=== PATIENT | male | born 1970 | race Caucasian/White ===

== ENCOUNTER → 2020-05-29 | Outpatient (CLI) | payer OTHER ==
--- NOTE | 2020-05-29 13:22 | MR ---
EXAMINATION TYPE: MR knee RT wo con DATE OF EXAM: 05/29/2020 COMPARISON: Plain film 05/04/2020 HISTORY: Right knee pain TECHNIQUE: Multiplanar, multisequence imaging of the right knee is performed without IV contrast. FINDINGS: MEDIAL MENISCUS: Anterior and posterior horns are intact without tear. LATERAL MENISCUS: Anterior and posterior horns are intact without tear. CRUCIATE LIGAMENTS: The anterior and posterior cruciate ligaments are intact and unremarkable. COLLATERAL LIGAMENTS: The medial collateral ligament and lateral collateral ligament complex are inta ct and unremarkable. EXTENSOR MECHANISM: Visualized quadriceps and patellar tendons are intact. Increased signal is presen t at the insertion of the patellar tendon, there is some focal thickening of the tendon EFFUSION: There is a small joint effusion POPLITEAL CYST: No popliteal/majano cyst. TRICOMPARTMENT SPACES: Maintained CARTILAGE: Maintained BONE MARROW SIGNAL: No focal abnormal marrow signal is appreciated. OTHER: There is some subcutaneous edema present anteriorly. IMPRESSION: Correlate for point tenderness, possible tendinosis, partial tear of the patellar tendon at its inser tion
== END | disposition home or self-care (01) ==
LOC: RADMRIMAIN 09:24
PROVIDERS: ATTEND Orthopaedic Surgery
DX: M25.561 Pain in right knee (principal)

== ENCOUNTER → 2021-12-23 | Outpatient (CLI) | payer OTHER ==
--- NOTE | 2021-12-24 01:22 | MR ---
EXAMINATION TYPE: MR knee RT wo con DATE OF EXAM: 12/23/2021 COMPARISON: None HISTORY: Right knee pain, pain behind knee, painful kneecap, and swelling . History of surgery Multiplanar multi echo imaging of the right knee without contrast. The anterior and posterior cruciate ligaments are intact. There is minimal knee joint effusion. There is increased signal in the posterior horn of the medial meniscus extending to the inferior surface. The other menisci appear fairly normal. The collateral ligaments are intact. No fracture seen. There is subcutaneous edema around the knee. The patella is intact. Knee joint spaces are fairly normal. IMPRESSION: There is complex tear of the posterior horn of the medial meniscus. No evidence of ligamentous tear. Small knee joint effusion.
== END | disposition home or self-care (01) ==
LOC: RADMRIMAIN 21:13
PROVIDERS: ATTEND Orthopaedic Surgery
DX: S83.241A Other tear of medial meniscus, current injury, right knee, initial encounter (principal); X58.XXXA Exposure to other specified factors, initial encounter

== ENCOUNTER → 2021-12-30 | Outpatient (CLI) | payer OTHER ==
[2021-12-30 17:58] LABS: HCT 46.9 % (39.0-53.0); HGB 14.7 gm/dL (13.0-17.5); MCH 27.4 pg (25.0-35.0); MCHC 31.4 g/dL (31.0-37.0); MCV 87.2 fL (80.0-100.0); Mean Platelet Volume 7.9; Platelet Count 147 k/uL (150-450); RBC 5.38 m/uL (4.30-5.90); RDW 12.9 % (11.5-15.5); WBC 6.7 k/uL (3.8-10.6)
[2021-12-30 20:39] LABS: Basophils # (M) 0.07 k/uL (0-0.2); Eosinophils # (M) 0.13 k/uL (0-0.7); Lymphocytes # (M) 1.47 k/uL (1.0-4.8); Monocytes # (M) 0.67 k/uL (0-1.0); Neutrophils # (M) 4.36 k/uL (1.3-7.7); Neutrophils % (M) 65 %; Nucleated Red Blood Cells 0 /100 WBC (0-0); RBC Morphology Normal; Total Cells Counted 100
[2021-12-30 23:32] LABS: African American GFR (CKD) 109.4 (60.0-200.0); BUN/Creat Ratio 11.33 Ratio (12.00-20.00); Blood Urea Nitrogen 10.5 mg/dL (9.0-27.0); Calcium 9.7 mg/dL (8.7-10.3); Carbon Dioxide 25.1 mmol/L (20.0-27.5); Non-African American GFR(CKD) 94.4 (60.0-200.0); Potassium 4.5 mmol/L (3.5-5.5)
== END | disposition home or self-care (01) ==
LOC: LABPAT 10:25
PROVIDERS: ATTEND Orthopaedic Surgery
DX: Z01.812 Encounter for preprocedural laboratory examination (principal); M23.91 Unspecified internal derangement of right knee
CPT/HCPCS: 80048; 85025

== ENCOUNTER → 2022-12-26 | Outpatient (CLI) | payer OTHER ==
[2022-12-26 19:22] LABS: Anion Gap 8.7 mmol/L (10.00-18.00); BUN/Creat Ratio 20.71 Ratio (12.00-20.00); Blood Urea Nitrogen 19.3 mg/dL (9.0-27.0); Calcium 9.9 mg/dL (8.7-10.3); Non-African American GFR(CKD) 93.2 (60.0-200.0); Potassium 5.3 mmol/L (3.5-5.5)
[2022-12-26 20:41] LABS: Basophils # (A) 0.06 X 10*3/uL (0.00-0.10); Basophils % (A) 0.9 %; Eosinophils # (A) 0.21 X 10*3/uL (0.04-0.35); HGB 13.9 g/dL (13.0-17.0); Immature Grans, Automated 0.4 %; Lymphocytes % (A) 41.7 %; MCH 27.1 pg (27.0-32.0); MCHC 31.6 g/dL (32.0-37.0); MCV 85.8 fL (80.0-97.0); Mean Platelet Volume 10.1 fL (9.5-12.2); Monocytes # (A) 0.73 X 10*3/uL (0.20-1.00); Monocytes % (A) 10.5 %; NRBC Per 100 WBC 0 /100 WBCS (0.0-0.0); Neutrophils # (A) 3.03 X 10*3/uL (1.80-7.70); Neutrophils % (A) 43.5 %; Platelet Count 232 X 10*3/uL (140-440); RBC 5.13 X 10*6/uL (4.40-5.60); RDW 12.5 % (11.5-14.5); WBC 6.96 X 10*3/uL (4.50-10.00)
== END | disposition home or self-care (01) ==
LOC: LABWHC1 09:56
PROVIDERS: ATTEND Orthopaedic Surgery
DX: Z01.818 Encounter for other preprocedural examination (principal); M75.42 Impingement syndrome of left shoulder; R00.1 Bradycardia, unspecified; R94.31 Abnormal electrocardiogram [ECG] [EKG]
CPT/HCPCS: 36415; 80048; 85025; 93005

== ENCOUNTER → 2023-01-16 | Day surgery (SDC) | payer OTHER ==
--- NOTE | 2023-01-15 08:37 | P.HPOR ---
History of Present Illness H&P Date: 01/15/23 Chief Complaint: Left shoulder pain The patient is a 52-year-old left hand dominant male who presents with left shoulder pain for the past 6 months that is worsening. He is having pain with overhead use and at night. He notes it significantly limiting. He's tried therapy, medications, and an injection without much relief. Review of Systems As per HPI Past Medical History Past Medical History: Atrial Fibrillation, Hyperlipidemia, Hypertension, Myocardial Infarction (ME), Osteoarthritis (OA) Last Myocardial Infarction Date:: 2018 History of Any Multi-Drug Resistant Organisms: None Reported Past Surgical History: Back Surgery, Cholecystectomy, Heart Catheterization, Hernia Repair, Orthopedic Surgery, Tonsillectomy Additional Past Surgical History / Comment(s): rt knee arthroscopy x2, spinal fusion Past Anesthesia/Blood Transfusion Reactions: No Reported Reaction Smoking Status: Former smoker - Past Family History Mother Family Medical History: No Reported History Medications and Allergies Home Medications Medication Instructions Recorded Confirmed Type ALPRAZolam [Xanax] 0.25 mg PO BID PRN 01/22/22 01/14/23 History Allergy Eye Drop 1 drop BOTH EYES QAM 01/22/22 01/14/23 History Allergy Injections 1 applicate IJ Q21D 01/22/22 01/14/23 History Aspirin 325 mg PO DAILY 01/22/22 01/14/23 History Cholecalciferol [Vitamin D3 (25 50 mcg PO HS 01/22/22 01/14/23 History Mcg = 1000 Iu)] Docusate [Colace] 200 mg PO HS 01/22/22 01/14/23 History Fluticasone Nasal [place] [Flonase 2 spray EA NOSTRIL BID 01/22/22 01/14/23 Hi story Nasal [place]] Loratadine [Claritin] 10 mg PO DAILY 01/22/22 01/14/23 History Nitroglycerin Sl Tabs [Nitrostat] 0.4 mg SUBLINGUAL Q5M PRN 01/22/22 01/14/23 History Rosuvastatin Calcium 10 mg PO HS 01/22/22 01/14/23 History Metoprolol Tartrate [Lopressor] 50 mg PO BID 01/14/23 01/14/23 History Sertraline [Zoloft] 25 mg PO HS 01/14/23 01/14/23 History Allergies Allergy/AdvReac Type Severity Reaction Status Date / Time tramadol [From Ultram] Allergy confusioin, Verified 01/14/23 14:50 pin point pupils dust,trees,weeds Allergy Unknown Uncoded 01/14/23 14:50 Physical Examination - Shoulder left Tenderness with palpation: anterior Pain: with abduction, with forward flexion ROM: forward flexion: 140 degrees ROM: internal rotation: upper lumbar ROM: external rotation: 50 degrees Crepitus with motion: Yes Strength: abduction: 4/5 Strength: external rotation: 5/5 Tests: internal impingement tests: positive, external impingment tests: positive Results The patient is a well-developed well-nourished male, approximately 5 foot 11, 275 pounds of endomorphic have his. HEENT exam; nonfocal, neck supple. He is tender about the anterior subacromial space of the left shoulder. He has moderate crepitus. Has a positive Neer, White, and speed test. His distal neurovascular appears intact left upper extremity. - Diagnostic results Shoulder MRI: image reviewed (MRI report left shoulder 07/24/2022 shows rotator cuff tendinosis along with biceps tendinosis.) Assessment and Plan Assessment: Left shoulder impingement/rotator cuff tendinosis/possible partial thickness rotator cuff tear Left proximal bicipital tendinosis Plan: I talked to the patient regarding his condition along with treatment options. This point remains quite symptomatic despite previous conservative measures. After thorough discussion he opted to proceed with surgery. We'll proceed with left shoulder arthroscopy with probable subacromial decompression, possible rotator cuff debridement versus repair, in addition to possible biceps tenotomy. We will likely perform that as an outpatient procedure. Risks and benefits were discussed at length in layman's terms.
[~2023-01-16] MED LIST: DEXAMETHASONE SOD PHOSPHATE 4 MG/ML 1 ML VIAL IV ONE; DEXAMETHASONE SOD PHOSPHATE 4 MG/ML 1 ML VIAL ONE; EPINEPHrine (PF) 1 ML in SODIUM CHLORIDE 0.9% IRRIGATIO 3,000 ML IRRIGATION ONE; GLYCOPYRROLATE 0.2 MG/ML 2 ML VIAL ONE; HYDROmorphone (PF) 1 MG/ML ONE; HYDROmorphone 0.5 MG/0.5 ML SYRINGE IVP ONE; HYDROmorphone 0.5 MG/0.5 ML SYRINGE IVP PRN; LACTATED RINGERS 1,000 ML IV SCH; LIDOCAINE 1% (10MG/ML) FOR IV START INTRADERMA PRN; LIDOCAINE 2% INJ 20 MG/ML (2 ML VIAL) ONE; MIDAZOLAM 2 MG/2 ML VIAL IV PRN; MIDAZOLAM 2 MG/2 ML VIAL IVP ONE; NEOSTIGMINE 1 MG/ML 10 ML VIAL ONE; ONDANSETRON 4 MG/2 ML VIAL IVP ONE; ONDANSETRON 4 MG/2 ML VIAL ONE; PHENYLEPHRINE-0.9% NACL SYG 1,000 MCG/10 ML SYRINGE ONE; PROPOFOL 10 MG/ML 20 ML VIAL IV ONE; ROCURONIUM 10 MG/ML (5 ML VIAL) IV ONE; ROPIVACAINE 5 MG/ML 30 ML VIAL ONE; SUCCINYLCHOLINE CHLORIDE 200 MG/10 ML VIAL IV ONE; ceFAZolin 3 GM in SODIUM CHLORIDE 0.9% 100 ML IVPB PRN
[2023-01-16 06:32] VITALS: RESP 16; TEMP 97.5
--- NOTE | 2023-01-16 09:36 | P.OP ---
Date of Procedure: 01/16/23 Preoperative Diagnosis: Left shoulder impingement/partial thickness rotator cuff tear/bicipital tendinosis Postoperative Diagnosis: High-grade partial-thickness tear bursal surface supraspinatus, high-grade partial tear intra-articular portion proximal biceps Procedure(s) Performed: Left shoulder arthroscopic subacromial decompression/biceps tenotomy/distal clavicular resection/rotator cuff repair Implants: Arthrex 4.75 mm swivel lock anchor 2 Anesthesia: TUSHAR regional Surgeon: Glynn Grier Evp General Counsel #1: Edy Rodriguez Estimated Blood Loss (ml): 10 Pathology: none sent Condition: stable Disposition: PACU Indications for Procedure: The patient's a 52-year-old male who presents with progressive left shoulder pain despite conservative measures. A discussion of the risks and benefits of operative intervention versus continued conservative measures was made with patient. He opted to proceed with surgery. Operative risks to include infection, neurovascular injury, development of blood clots, possible tendon rerupture, possible postoperative stiffness and need for subsequent procedures was discussed. Informed consent was obtained. Operative Findings: As below Description of Procedure: The patient was brought to the operating room, and after induction of general anesthesia was placed in a beachchair position. A preoperative interscalene block was placed for postoperative analgesia. I examined the left shoulder. There was no gross block to passive motion or gross glenohumeral instability. The left upper extremity was prepped and draped in normal fashion. The bony outlines the acromion, distal clavicle, and coracoid process were outlined with a skin marker. The glenohumeral joint was inflated with 50 mL of saline utilizing a spinal needle from posterior approach. A posterior portal was made through a 5 mm skin incision 1 cm medial and inferior to the posterior lateral border time. A blunt trocar was used to easily into the joint. Diagnostic arthroscopy was performed. An anterior portal was made just lateral to the coracoid process entering the joint above the subscapularis tendon. The subscapularis tendon appeared to be intact. Anterior labrum was intact. The inferior recess was inspected. The posterior labrum was intact. There was a high-grade partial-thickness tear of the long head of the biceps involving interarticular portion. It was elected to proceed with release at this point. This was released from the superior labrum with electrocautery and was allowed to retract to the bicipital groove. On inspection the rotator cuff, a partial thickness tear involving the anterior aspect the supraspinatus on the articular surface was noted. This involved approximately 20% of the tendon thickness. This was debrided back to a stable base with a motorized shaver. The arthroscope was placed into the subacromial . A lateral portal was made 2 centimeters inferior to the anterior lateral border of the acromion. . The soft tissue on the undersurface of the acromion was debrided with a motorized shaver and electrocautery clearly defining the anterior medial and lateral borders as well as the distal clavicle. An anterior inferior acromioplasty was performed with a motorized sandra starting anterolateral, then extending this posteriorly, then extending this medially. I converted to a flat acromion and this was verified in the posterior and lateral viewing portals. The distal clavicle appear to impinge on the subacromial space therefore the distal 4 mm was resected with a motorized sandra. The rotator cuff was then inspected. A high-grade partial-thickness tear involving the infraspinatus was noted measuring approximately 1-1/2 cm. This involved proximal 75% of the tendon thickness. This was then taken down and easily mobilized. The greater tuberosity was lightly decorticating with a shaver down to a bleeding bony surface. An accessory superior lateral portal was made just off the lateral edge of the acromion for anchor placement along with a posterior lateral portal for viewing. A 4.75 mm swivel lock anchor was then placed off the articular surface with the appropriate starting awl. A tap was utilized. Good purchase obtained. 2 fiber tapes were then passed the rotator cuff with a scorpion suture passer. A lateral row was created crisscrossing these tapes. A 4.75 mm swivel lock anchor was placed laterally with the appropriate starting awl. Good purchase was obtained. Final arthroscopic view showed adequate compression at the footprint. The arthroscope was then removed. The portals were closed with simple 3-0 nylon sutures. A sterile dressing was applied in addition to a sling. The patient was then awoken from general anesthesia and transferred to recovery room in good condition. Blood loss was estimated at 10 mL. No complications were incurred. Sponge and needle counts were correct in the case. Edy VICENTE assisted and the major components of the case to include arm positioning, anchor placement, and rotator cuff repair.
--- NOTE | 2023-01-16 10:27 | P.ANPRN ---
Procedure Note - Anesthesia - Nerve Block Performed Left Interscalene Single Time Out Performed: Yes Date of Procedure: 01/16/23 Procedure Start Time: 06:57 Procedure Stop Time: 07:03 Location of Patient: PreOp Indication: Acute Post-Operative Pain, Requested by Surgeon Sedation Type: Sedate with meaningful contact maintained Preparation: Sterile Prep Position: Supine Needle Types: Pajunk Needle Gauge: 21 Ultrasound used to visualize needle placement: Yes Ultrasound used to observe medication spread: Yes Blood Aspirated: No Pain Paresthesia on Injection Noted: No Resistance on Injection: Normal Image Stored and Saved: Yes Events: Uneventful and Well Tolerated (Ropivacaine 0.5% 20 mL cc plus dexamethasone 4 mg)
[2023-01-16 12:44] VITALS: BP 108/77; PULSE 80
== END | disposition home or self-care (01) ==
LOC: OR 05:53
PROVIDERS: ATTEND Orthopaedic Surgery
DX: M75.112 Incomplete rotator cuff tear or rupture of left shoulder, not specified as traumatic (principal); S46.212A Strain of muscle, fascia and tendon of other parts of biceps, left arm, initial encounter; S43.432A Superior glenoid labrum lesion of left shoulder, initial encounter; M75.22 Bicipital tendinitis, left shoulder; M75.42 Impingement syndrome of left shoulder; G89.18 Other acute postprocedural pain; I25.2 Old myocardial infarction; I48.91 Unspecified atrial fibrillation; I25.10 Atherosclerotic heart disease of native coronary artery without angina pectoris; F41.9 Anxiety disorder, unspecified; F32.A Depression, unspecified; I10 Essential (primary) hypertension; E78.5 Hyperlipidemia, unspecified; Z98.890 Other specified postprocedural states; Z87.891 Personal history of nicotine dependence; Z79.82 Long term (current) use of aspirin; Z79.899 Other long term (current) drug therapy; Z88.5 Allergy status to narcotic agent
CPT/HCPCS: 29827; 29824; 29826; 64415; C1713; C1894; J2250; J0330; J1100; J2710; J0690; J2405; J0171; J1170 ×2; J2795; J2370; J2704; J2001

== ENCOUNTER → 2024-01-05 | Outpatient (CLI) | payer OTHER | END | disposition home or self-care (01) | LOC: CPPFTMAIN 11:20 | PROVIDERS: ATTEND Family Medicine | DX: Z87.891 Personal history of nicotine dependence (principal) | CPT/HCPCS: 94060; 94726; 94729 ==

== ENCOUNTER → 2024-10-05 | Outpatient (CLI) | payer OTHER ==
[2024-10-05 10:26] VITALS: BP 177/99; PULSE 56; RESP 18; TEMP 97.5
--- NOTE | 2024-10-05 15:45 | P.PAINPG ---
PQRS Measure Charge Sheet Comment: HISTORY OF PRESENT ILLNESS: A 53 yr old male as a referral from the [facility] presents today w severe and chronic thoracolumbar pain secondary to radiculopathy, spondylosis and facet arthropathy without myelopathy for evaluation. Pt states pain level is provoked at 7 /10 in intensity, constant, localized in the lower lumbar spine, predominantly axial, sore in character w occasional shooting pain towards the back of the LEs. Pain is provoked by sitting on a chair for periods > 15 min. Pain is alleviated by PT x 6 wks (Hip, Shoulder) which he is currently in, physician guided home stretches daily since ec 2023, heat, medications (Ibu), topical Icy-Hot, repositioning and rest . Oswestry axial pain score at 28. PMH: OA, aFib, Hyperlipidemia, HTN, [place] (2018), PSH: Spinal Fusion, R Knee Arthroscopy x2 (2021), L RCT Repair (2022), Cardiac Catheterization, Hernia Repair, Cholecystectomy, Tonsillectomy SH: Former tobacco user, Rare ETOH use, No illicit drug use FH: Mo- No Reported History All: See list Meds: See list REVIEW OF ORGAN SYSTEMS: CONSTITUTIONAL: No fevers or chills. No recent weight loss. NEUROLOGICAL: + numbness and tingling along the distal extremities. No seizure disorders or headaches. MUSCULOSKELETAL: + pain PSYCHIATRIC: Denies current depression or suicidal thoughts. Physical Examinations : Constitutional : Cooperative , not in acute distress . Neurologic : Cranial nerve II to XII intact. No focal n eurological deficits. Psychiatric : alert & oriented x 3. Matching mood & appropriate affect. Judgment & insight intact. Musculoskeletal : Cervical Spine Motor strength in the deltoid and biceps: Normal right side. Normal Left side Motor strength biceps and the wrist extensors: Normal right side . Normal left side Motor strength in the triceps muscle: Normal right side. Normal left side Deep tendon reflexes: Normal at the biceps. Normal at Brachioradialis. Normal at triceps Vertebral body tenderness to deep p alpation over Cervical facet loading test: positive bilaterally Spurling test: positive bilaterally Neck distraction test: positive bilaterally Alexys sign: positive bilaterally Lumbar spine +Well healed vertical incisional scars Motor strength lower extremities ,thigh and legs 5/5 Right side , 5/5 Left side Deep tendon reflexes : Normal Knee Jerk. Normal Ankle Jerk Vertebral body tenderness over L4, L5 Cordero Test positive BL L5-S1 Lumbar facet Loading Test: positive Right / positive Left Range of motion of the lumbar spine Flexion 30 degrees, extension 10 degrees Straight Leg Raise test: Left/ Right positive at degrees Nancie test: positive right / positive left. Severe tenderness over the Sacroiliac joint on the Right / Left sides Gaenslen test: positive bilaterally Seated flexion test: positive bilaterally. Sacral spine : Severe tenderness over the Sacroiliac joint: right side / left side Range of motion: Flexion of the lumbar spine <60 degrees Range of motion: Extension of the lumbar spine <20 degrees Gaenslen's Test positive Nancie test: positive right side / left side Thigh Thrust Test Sacral Thrust Test Imaging: MRI non contrast lumbar spine from 06/16/24 reviewed MRI non contrast lumbar spine from 06/16/24 reviewed Assessment/ Plan : T2-T3/ T5-T6/ T7-T8/ T8-T9. T11-T12 radiculopathy, L3-L4 radiculopathy, post L4- S1 laminectomy syndrome Recommendation of Caudal ISREAL w Lysis. Risks, benefits of procedure discussed and patient verbalized understanding. Admits to anti- coagulant use or medical history of diabetes. Protocol for discontinuation/ continuation of medications herber procedure discussed. All questions answered. I have spent greater than 30 minutes on patient care today. Dr Lopez was available by phone for the evaluation of this patient. The time was used to review the medical records including relevant urine studies and Prescription history (MAPs), review of the available imaging, evaluation and examination of the patient, coordination of care with the medical staff and if applicable referring physicians, as well as creation of the medical record Home Medications: Ambulatory Orders ALPRAZolam [Xanax] 0.25 mg PO BID PRN 01/22/22 Allergy Eye Drop 1 drop BOTH EYES QAM 01/22/22 Allergy Injections 1 applicate IJ Q21D 01/22/22 Aspirin 325 mg PO DAILY 01/22/22 Cholecalciferol [Vitamin D3 (25 Mcg = 1000 Iu)] 50 mcg PO HS 01/22/22 Docusate [Colace] 200 mg PO HS 01/22/22 Fluticasone Nasal [place] [Flonase Nasal [place]] 2 spray EA NOSTRIL BID 01/22/22 Loratadine [Claritin] 10 mg PO DAILY 01/22/22 Nitroglycerin Sl Tabs [Nitrostat] 0.4 mg SUBLINGUAL Q5M PRN 01/22/22 Rosuvastatin Calcium 10 mg PO HS 01/22/22 Metoprolol Tartrate [Lopressor] 50 mg PO BID 01/14/23 Sertraline [Zoloft] 25 mg PO HS 01/14/23 HYDROcodone/APAP 7.5-325MG [[place] 7.5] 1 each PO Q6HR PRN #28 tab 01/16/23 Controlled Substance Measures - Controlled Substance Measures Is patient prescribed a controlled substance at discharge?: Yes When asked, does pt state using other controlled substances?: No If prescribed controlled substance>3 days was MAPS reviewed?: Prescribed <3 Days
== END ==
LOC: PNWHC3 09:04
PROVIDERS: ATTEND Specialist
DX: M54.14 Radiculopathy, thoracic region (principal); M54.16 Radiculopathy, lumbar region; M96.1 Postlaminectomy syndrome, not elsewhere classified; Z88.5 Allergy status to narcotic agent; Z91.048 Other nonmedicinal substance allergy status
CPT/HCPCS: 99202

== ENCOUNTER 2024-10-28 08:20 | Day surgery (SDC) | payer OTHER ==
[~2024-10-28 08:20] MED LIST changes: -DEXAMETHASONE SOD PHOSPHATE 4 MG/ML 1 ML VIAL IV ONE; -DEXAMETHASONE SOD PHOSPHATE 4 MG/ML 1 ML VIAL ONE; -EPINEPHrine (PF) 1 ML in SODIUM CHLORIDE 0.9% IRRIGATIO 3,000 ML IRRIGATION ONE; -GLYCOPYRROLATE 0.2 MG/ML 2 ML VIAL ONE; -HYDROmorphone (PF) 1 MG/ML ONE; -HYDROmorphone 0.5 MG/0.5 ML SYRINGE IVP ONE; -HYDROmorphone 0.5 MG/0.5 ML SYRINGE IVP PRN; -LIDOCAINE 1% (10MG/ML) FOR IV START INTRADERMA PRN; -LIDOCAINE 2% INJ 20 MG/ML (2 ML VIAL) ONE; -MIDAZOLAM 2 MG/2 ML VIAL IV PRN; -MIDAZOLAM 2 MG/2 ML VIAL IVP ONE; -NEOSTIGMINE 1 MG/ML 10 ML VIAL ONE; -ONDANSETRON 4 MG/2 ML VIAL IVP ONE; -ONDANSETRON 4 MG/2 ML VIAL ONE; -PHENYLEPHRINE-0.9% NACL SYG 1,000 MCG/10 ML SYRINGE ONE; -PROPOFOL 10 MG/ML 20 ML VIAL IV ONE; -ROCURONIUM 10 MG/ML (5 ML VIAL) IV ONE; -ROPIVACAINE 5 MG/ML 30 ML VIAL ONE; -SUCCINYLCHOLINE CHLORIDE 200 MG/10 ML VIAL IV ONE; -ceFAZolin 3 GM in SODIUM CHLORIDE 0.9% 100 ML IVPB PRN
[2024-10-28 09:32] VITALS: TEMP 97.5
[2024-10-28] MEDS ORDERED: methylPREDNISolone ACETATE 80 MG/ML 1 ML VIAL ONE (09:58)
[2024-10-28] MEDS ORDERED: IOPAMIDOL M200 10 ML VIAL ONE (09:58)
[2024-10-28] MEDS ORDERED: ROPIVACAINE 5MG/ML 20ML VIAL ONE (09:58)
--- NOTE | 2024-10-28 10:11 | P.PCN ---
Date of Procedure: 10/28/24 Procedure(s) Performed: PREOP DIAGNOSIS: 1- Lumbar postlaminectomy syndrome. 2-lumbar radiculopathy POSTOP DIAGNOSIS:1- Lumbar postlaminectomy syndrome. 2-lumbar radiculopathy PROCEDURE: 1-Caudal epidural steroid injection with epidurolysis and epidurogram under fluoroscopic guidance. (Fluoro images in the radiology Department ) 2-caudal epidurogram. ANESTHESIA: Local ropivacaine 0.5% 3 mL for skin and subcu infiltration. EBL: Minimal. PROCEDURE INDICATION: The patient with post-laminectomy syndrome with low back pain and radiculopathy radiating down in both legs, here for a caudal epidural steroid injection with epidurolysis. PROCEDURE DESCRIPTION: The patient was seen and identified in the preoperative area. Risks, benefits, complications, and alternatives were discussed with the patient. The patient agreed to proceed with the procedure and signed the consent, and vital signs were stable. Patient was taken to the OR and time out was completed. The patient was placed in the prone position on procedure table and a pillow was placed under the abdomen to reduce lumbar lordosis. The lumbosacral area was prepped and draped in the usual sterile fashion. Vital signs were closely monitored during the procedure. lateral view and the anterior-posterior plates of the sacrum were identified with infiltration of the area overlying the sacral hiatus with 0.5% ropivacaine 3 mL .A 17 gauge RK epidural needle was used to advance through the sacral hiatus into the caudal epidural space. Omnipaque 180 dye. 2cc was injected and the position of the needle was verified to be in the midline. A Racz catheter was introduced into the epidural space and was advanced towards the L5-S1 interspace under direct fluoroscopic guidance. Multiple passes were made with the catheter for lysis of epidural adhesions. Depo-Medrol 80 mg ( preservative-free ) with 2 ml of preservative ropivacaine 0.5% and 5 ml of preservative free normal saline was injected slowly. Additional spread was seen to L4 under fluoroscopy. The needle and the catheter were withdrawn intact. EPIDUROGRAM: Omnipaque 180 mg dye 2 ml was injected with spread of the dye into the caudal epidural space and with spread cutoff at L5 prior to epidurolysis. Post epidurolysis dye 2 ml was injected and spread was seen to L3-4.There was further spread of the solution together with the dye above the L3 COMPLICATIONS: None. DISPOSITION / PLANS: The patient was placed in a supine position and transferred to the recovery area in a stable condition for observation and was discharged from the recovery room after meeting discharge criteria. Home discharge instructions given to the patient by the staff. The patient was reexamined prior to discharge. The patient will schedule a follow up in the clinic in 2-4 weeks.
[2024-10-28 10:16] VITALS: BP 143/79; PULSE 64; RESP 18
--- NOTE | 2024-10-28 10:21 | FL ---
EXAMINATION TYPE: FL guided pain mgmt statistic Intraoperative/procedural fluoroscopic services were provided. CLINICAL INDICATION:Male, 54 years old with history of M54.16 CDL EPIDURAL W/LYSIS ADHESIONS; , PHH FINDINGS: Interval placement of epidural catheter with lysis of adhesions. Lumbosacral fusion hardwar e. No radiographic evidence for complication. Total fluoroscopy time is 7.8 seconds DAP: [id number] mGym2 Please see the operative/procedural note for further details. [facility], , 10/28/2024 10:19 AM
== END 2024-10-28 10:39 | disposition home or self-care (01) ==
LOC: ORPAIN 08:20
PROVIDERS: ATTEND Specialist
DX: M54.16 Radiculopathy, lumbar region (principal); M96.1 Postlaminectomy syndrome, not elsewhere classified; Z88.5 Allergy status to narcotic agent; Z91.09 Other allergy status, other than to drugs and biological substances
CPT/HCPCS: 62264; Q9966; J2795; J1010

== ENCOUNTER → 2024-11-21 | Outpatient (CLI) | payer OTHER ==
[2024-11-21 09:58] VITALS: BP 147/93; PULSE 54; RESP 18; TEMP 97.5
--- NOTE | 2024-11-21 15:15 | P.PAINPG ---
PQRS Measure Charge Sheet Comment: HISTORY OF PRESENT ILLNESS: A 53 yr old male from the [facility] presents today w severe and chronic thoracolumbar pain secondary to T2-T3/ T5-T6/ T7-T8/ T8-T9, T11-T12 radiculopathy; L3-L4 radiculopathy; post L4-S1 laminectomy syndrome for evaluation s/p Caudal ISREAL w Lysis #1. Pt states he experienced 0% pain relief s/p procedure. Pt states pain level is provoked at 4-6 /10 in intensity, intermittent, localized in the lower lumbar spine, predominantly axial, sore in character w occasional shooting pain towards the back of the LEs. Pain is provoked by sitting on a chair for periods > 15 min. Pain is alleviated by PT x 6 wks (Hip, Shoulder) which he is currently in, physician guided home stretches daily since 2023, heat, medications, topical , repositioning and rest . Interventional procedures include Caudal ISREAL w Lysis x1 Medication s include Ibu, Icy-Hot REVIEW OF ORGAN SYSTEMS: CONSTITUTIONAL: No fevers or chills. No recent weight loss. NEUROLOGICAL: + numbness and tingling along the distal extremities. No seizure disorders or headaches. MUSCULOSKELETAL: + pain PSYCHIATRIC: Denies current depression or suicidal thoughts. Physical Examinations : Constitutional : Cooperative , not in acute distress . Neurologic : Cranial nerve II to XII intact. No focal neurological deficits. Psychiatric : alert & oriented x 3. Matching mood & appropriate affect. Judgment & insight intact. Musculoskeletal : Cervical Spine Motor strength in the deltoid and biceps: Normal right side. Normal Left side Motor strength biceps and the wrist extensors: Normal right side . Normal left side Motor strength in the triceps muscle: N ormal right side. Normal left side Deep tendon reflexes: Normal at the biceps. Normal at Brachioradialis. Normal at triceps Vertebral body tenderness to deep palpation over Cervical facet loading test: positive bilaterally Spurling test: positive bilaterally Neck distraction test: positive bilaterally Alexys sign: positive bilaterally Lumbar spine +Well healed vertical incisional scars Motor strength lower extremities ,thigh and legs 5/5 Right side , 5/5 Left side Deep tendon reflexes : Normal Knee Jerk. Normal Ankle Jerk Vertebral body tenderness over L4, L5 Cordero Test positive BL L4-L5, L5-S1 Lumbar facet Loading Test: positive Right / positive Left Range of motion of the lumbar spine Flexion 30 degrees, extension 10 degrees Straight Leg Raise test: Left/ Right positive at degrees Nancie test: positive right / positive left. Severe tenderness over the Sacroiliac joint on the Right / Left sides Gaenslen test: positive bilaterally Seated flexion test: positive bilaterally. Sacral spine : Severe tenderness over the Sacroiliac joint: right side / left side Range of motion: Flexion of the lumbar spine <60 degrees Range of motion: Extension of the lumbar spine <20 degrees Gaenslen's Test positive Nancie test: positive right side / left side Thigh Thrust Test Sacral Thrust Test Imaging: MRI non contrast lumbar spine from 06/16/24 reviewed MRI non contrast lumbar spine from 06/16/24 reviewed Assessment/ Plan : T2-T3/ T5-T6/ T7-T8/ T8-T9, T11-T12 radiculopathy; L3-L4 radiculopathy; post L4- S1 laminectomy syndrome Recommendation of L TFESI L4-L5/ R TFESI L5-S1 #1. Risks, benefits of procedure discussed and patient verbalized understanding. Admits to anti- coagulant use or medical history of diabetes. Protocol for discontinuation/ continuation of medications herber procedure discussed. Minimal anesthesia including Fentanyl and Versed if clinically indicated. TENS unit ordered M54.16 All questions answered. I have spent greater than 30 minutes on patient care today. Dr Lopez was available by phone for the evaluation of this patient. The time was used to review the medical records including relevant urine studies and Prescription history (MAPs), review of the available imaging, evaluation and examination of the patient, coordination of care with the medical staff and if applicable referring physicians, as well as creation of the medical record PQRS Narrative: Hx Alcohol Use (MH) No Home Medications: Ambulatory Orders ALPRAZolam [Xanax] 0.25 mg PO BID PRN 01/22/22 Allergy Eye Drop 1 drop BOTH EYES QAM PRN 01/22/22 Allergy Injections 1 applicate IJ Q21D 01/22/22 Fluticasone Nasal [place]qua [Flonase Nasal V[place]qua] 2 spray EA NOSTRIL BID PRN 01/22/22 Loratadine [Claritin] 10 mg PO DAILY 01/22/22 Nitroglycerin Sl Tabs [Nitrostat] 0.4 mg SUBLINGUAL Q5M PRN 01/22/22 Rosuvastatin Calcium 10 mg PO HS 01/22/22 Metoprolol Tartrate [Lopressor] 50 mg PO BID 01/14/23 Sertraline [Zoloft] 50 mg PO HS 01/14/23 diazePAM [Valium] 5 mg PO DAILY 1 Days #2 tab 10/05/24 Aspirin [Adult Low Dose Aspirin EC] 81 mg PO DAILY 10/26/24 Famotidine [Pepcid] 20 mg PO DAILY 10/26/24 Ibuprofen [Motrin] 800 mg PO Q8H PRN 10/26/24 Controlled Substance Measures - Controlled Substance Measures Is patient prescribed a controlled substance at discharge?: No
== END ==
LOC: PNWHC3 09:18
PROVIDERS: ATTEND Specialist
DX: M54.14 Radiculopathy, thoracic region (principal); M54.16 Radiculopathy, lumbar region; M96.1 Postlaminectomy syndrome, not elsewhere classified; F12.90 Cannabis use, unspecified, uncomplicated; Z88.5 Allergy status to narcotic agent; Z91.048 Other nonmedicinal substance allergy status
CPT/HCPCS: 99211

== ENCOUNTER 2025-01-13 08:34 | Day surgery (SDC) | payer OTHER ==
[2025-01-10 15:03] VITALS: BMI 38.9
[2025-01-13 10:08] VITALS: TEMP 97.3
[2025-01-13] MEDS: LACTATED RINGERS 1,000 ML IV SCH (10:25)
[2025-01-13] MEDS: LACTATED RINGERS 1,000 ML IV ONE (10:25)
[2025-01-13] MEDS ORDERED: MIDAZOLAM 2 MG/2 ML VIAL ONE (10:56)
[2025-01-13] MEDS ORDERED: fentaNYL (PF) 50 MCG/ML 2 ML AMP ONE (10:56)
[2025-01-13] MEDS ORDERED: IOPAMIDOL M200 10 ML VIAL ONE (10:56)
[2025-01-13] MEDS ORDERED: methylPREDNISolone ACETATE 80 MG/ML 1 ML VIAL ONE (10:56)
--- NOTE | 2025-01-13 11:14 | P.PCN ---
Date of Procedure: 01/13/25 Procedure(s) Performed: PREOPERATIVE DIAGNOSIS: 1-Lumbar radiculopathy . 2-postlaminectomy pain syndrome lumbar area. POSTOPERATIVE DIAGNOSIS: 1-lumbar radiculopathy. 2-postlaminectomy pain syndrome lumbar area. PROCEDURE 1. Transforaminal epidural steroid injection under fluoroscopic guidance at left L4-5 level, and right L5-S1. (Fluoroscopy images in Rad Dept ) 2. Lumbar epidurogram . ANESTHESIA: Local with 1% lidocaine 3 ml. And moderate sedation with Versed 2 mg and fentanyl 100 mcg , (sedation started at 10:56, finished 1108 ) EBL: Minimal PROCEDURE INDICATION: The patient with low back pain and radiculopathy symptoms unresponsive to conservative treatment. PROCEDURE DESCRIPTION / TECHNIQUE: The patient was seen and identified in the preoperative area. Risks, benefits, complications, and alternatives were discussed with the patient. The patient agreed to proceed with the procedure and signed the consent. IV was started, and vital signs were stable sedation was given to decrease the patient's anxiety. Patient was taken to the OR and time out was completed. The patient was placed in the prone position on procedure table and a pillow was placed under the abdomen to reduce lumbar lordosis. The lumbosacral area was prepped and draped in the usual sterile fashion. Critical pause was taken. Vital signs were closely monitored during the procedure. Using oblique fluoroscopy, the chin of the ``Mykel dog at right L5-S1 level was identified, and the skin and deeper tissues just below was localized with 1% lidocaine. Subsequently, a 22-gauge 5-inch spinal needle was advanced under a tunneled view fluoroscopic guidance just underneath the chin of the `Johnnyy dog at the right L5-S1 Under lateral fluoroscopy, the needle was then advanced to the posterior border of the interforaminal space. After negative aspiration of CSF and blood and with no paresthesias, 1 mL Isovue 200 contrast dye was injected excellent epidurogram and outlining of the nerve root Subsequently, 3 mL of block solution containing 40 mg Depo-Medrol and 2 mL of 0.9% normal saline PF was injected. Needle was removed and the same procedure was repeated at the left L4-5 level . At the end of the procedure, skin was cleansed, and bandages were applied. COMPLICATIONS:none DISPOSITION / PLANS: The patient was placed in a supine position and transferred to the recovery area in a stable condition for observation. There was no evidence of lower extremity motor or sensory deficit after the procedure. Patient was discharged from the recovery room after meeting discharge criteria. Home discharge instructions were given to the patient by the staff. The patient was reexamined prior to discharge.
[2025-01-13] MEDS: IV FLUID CONTINUATION 1,000 ML IV ONE (11:16)
[2025-01-13 11:21] VITALS: RESP 18
--- NOTE | 2025-01-13 11:22 | FL ---
EXAMINATION TYPE: FL guided pain mgmt statistic Intraoperative/procedural fluoroscopic services were provided. CLINICAL INDICATION:Male, 54 years old with history of Transforaminal Inj; , PH FINDINGS: Bilateral lumbar transforaminal injections. Lumbar fusion hardware demonstrated. No radiographic evid ence for complication. Total fluoroscopy time is 22.5 seconds. DAP: [id number] mGym2 Please see the operative/procedural note for further details. [facility], , 01/13/2025 11:20 AM
[2025-01-13 11:34] VITALS: BP 130/81; PULSE 56
== END 2025-01-13 11:53 ==
LOC: ORPAIN 08:34
PROVIDERS: ATTEND Specialist
DX: M54.16 Radiculopathy, lumbar region (principal); M96.1 Postlaminectomy syndrome, not elsewhere classified
CPT/HCPCS: 64483; 64484; J2250; J3010; Q9966; J1010; 99152